=== PATIENT | female | born 1980 | race Caucasian/White ===

== ENCOUNTER → 2023-07-22 09:43 | Outpatient (BNVA) | payer BC, SELFPAY | PROVIDERS: PCP Nurse Practitioner Family; Visit Provider Nurse Practitioner Family | DX: M79.671 Pain in right foot (principal); S93.601A Unspecified sprain of right foot, initial encounter; X58.XXXA Exposure to other specified factors, initial encounter | CPT/HCPCS: 73630 ==

== ENCOUNTER → 2023-07-28 13:22 | Outpatient (BNVA) | payer BC, SELFPAY | PROVIDERS: PCP Nurse Practitioner Family; Visit Provider Podiatrist Foot & Ankle Surgery | DX: Z01.818 Encounter for other preprocedural examination; M20.11 Hallux valgus (acquired), right foot; S93.521A Sprain of metatarsophalangeal joint of right great toe, initial encounter; X58.XXXA Exposure to other specified factors, initial encounter | CPT/HCPCS: 73630 ==

== ENCOUNTER 2023-08-20 07:33 | Day surgery (SDC) | payer BC, SELFPAY ==
[2023-08-20] VITALS (11 sets, daily range): BP systolic 119–153; BP diastolic 79–99; PULSE 46–68; RESP 11–18; TEMP 36.1–36.7; O2SAT 95–100; BMI 25.8
--- NOTE | 2023-08-20 | XR_ITS ---
WS: [id number] C-ARM RADIOGRAPHS RIGHT FOOT; 2 IMAGES HISTORY: DIAMOND PICS COMPARISON: None available. Intraoperative imaging during surgical procedure and fixation at the first metatarsophalangeal joint. IMPRESSION: Intraoperative imaging during surgical procedure RIGHT foot.
--- NOTE | 2023-08-20 08:00 | W.PM.OPSUD ---
Surgery/Procedure H&P Update DATE OF PROCEDURE: August 20, 2023 DATE H&P PERFORMED: 07/28/23 H&P UPDATE INFORMATION: I have reviewed H&P completed within last 30 days, I have examined patient prior to procedure, No changes to prior documentation and H&P is in [facility] EMR on date indicated PREOP DIAGNOSIS: Right hallux valgus PLANNED PROCEDURE: Operation Date: 08/20/23 09:30 Proposed Procedures p Bunionectomy Patrick(Right) - Daniel Loaiza DPM s Bart Osteotomy(Right) - Daniel Loaiza DPM
[2023-08-20] MEDS: sodium chloride 0.9% 1,000 ML 30 ML IV (08:42)
[2023-08-20] MEDS: ondansetron 2 mg/ML SDV 2 mL 4 MG IVP (08:42)
[2023-08-20] MEDS: gabapentin 300 mg Capsule PO (08:43)
[2023-08-20] MEDS: acetaminophen 1,000 MG/100 ML PIGGYBACK 400 MG IV (08:44)
--- NOTE | 2023-08-20 08:55 | ANES.PREANE2 ---
Pre-Anesthetic Assessment Height/Weight: Height 1.7 m Weight 74.843 kg Temp Pulse Resp BP Pulse Ox O2 Del Method 97.8 F 52 L 14 119/79 99 Room Air 08/20/23 08:06 08/20/23 08:06 08/20/23 08:06 08/20/23 08:06 08/20/23 08:06 08/20/23 08:13 Preop Diagnosis: Right hallux valgus Operation Date: 08/20/23 09:30 Proposed Procedures p Bunionectomy Patrick(Right) - Daniel Loaiza DPM s Bart Osteotomy(Right) - Daniel Loaiza DPM Last intake: Intake Last Liquid Date 08/19/23 Last Liquid Time 22:30 Last Solid Date 08/19/23 Last Solid Time 20:30 Social No alcohol and No tobacco Exam alert, oriented x 3 and regular rate & rhythm Airway Submandibular: within normal limits Cervical ROM: within normal limits Mallampati: Class I Pulmonary None reported CV/HEM None reported Hepatic None reported GI None reported Anesthetic Plan ASA status: 2 Anesthesia: General Risk of > 500 ml blood loss (7ml/kg in children): No Medications/Allergies Home Medications Medication Instructions Recorded Confirmed Last Taken Type magnesium 500 mg tablet 500 mg PO DAILY 08/19/23 08/19/23 08/19/23 History pepsin 450 mg-amylase 60 mg-ox 1 tab PO DAILY 08/19/23 08/19/23 08/19/23 History bile 32 mg-pancr 32 mg-betain tablet,ER turmeric 400 mg capsule 400 mg PO DAILY 08/19/23 08/19/23 08/17/23 History hydrocodone 5 mg-acetaminophen 325 1 tab PO Q6H PRN pain #28 tabs 08/20/23 Unknown Rx mg tablet Allergies Allergy/AdvReac Type Severity Reaction Status Date / Time latex Allergy ALGY-Redness Verified 08/19/23 10:46 of Skin percocet Allergy itching Uncoded 07/28/23 13:03 Current Medications Generic Name Dose Route Start Last Admin Trade Name Freq PRN Reason Stop Dose Admin Sodium Chloride 1,000 mls @ 30 mls/hr 08/20/23 07:45 08/20/23 08:42 Sodium Chloride 0.9% IV 08/21/23 07:44 30 mls/hr .Q24H PARTH Administration Ondansetron HCl 4 mg 08/18/23 12:04 08/20/23 08:42 Ondansetron 2 Mg/Ml Sdv 2 Ml IVP 4 mg Q15M PRN Administration Nausea/Vomiting PACU PHASE II Data Anesthesia Cardiac Studies: No Data to Display
[2023-08-20] MEDS: ceFAZolin 2,000 MG in sodium chloride 0.9% (plus) 50 ML 100 MG IV (10:20)
[2023-08-20] MEDS: BUPivacaine 0.5% INJ 30 mL INJECTION (10:53)
--- NOTE | 2023-08-20 11:54 | P.BOP_ITS ---
Date of procedure: 08/20/23 Surgeon name: Trisha RossiPJenni Financial Services Technician(s) name(s): Alyce Procedure(s) performed: Right foot distal metatarsal bunionectomy Description of findings: Right foot hallux valgus Estimated blood loss: 5 cc Tourniquet time: 60 minutes Specimen(s) removed: None Post-operative diagnosis: Hallux valgus
--- NOTE | 2023-08-20 11:55 | PM.OP ---
Operative Report Date of procedure: August 20, 2023 Pre-op diagnosis: Right foot hallux valgus Post-op diagnosis: Same Post-op findings: Anatomically reduced hallux valgus deformity Procedure done: Right foot bunionectomy with distal metatarsal osteotomy CPT 55020 Implants: Two 4.0 cannulated fully threaded compression screws from [employer] Surgeon: Daniel Loaiza DPM Agency Service Coordinator: Alyce Estimated blood loss: 5 cc 60 minutes Complications: None Findings: See above Procedure: Patient is a 42-year-old female that has a history of right foot hallux valgus deformity. The patient has had the aforementioned chief complaint for some time. Conservative treatment measures have been attempted and the patient has opted for surgical intervention at this time. A lengthy discussion regarding the procedure, including risks and complications has been had with the patient and is noted in the recent clinic note. Written and verbal consent have been obtained. All patient questions have been answered to the patient?s satisfaction. No written or verbal guarantees have been given or implied. The patient has been NPO since midnight. The history has been reviewed and the history and physical is current. The signed consent was confirmed and placed in the patient chart. Patient imaging has been reviewed and is consistent with the diagnosis. Under mild sedation, the patient was brought into the operating room and placed on the table in the supine position. IV antibiotics were given by the anesthesia team as preoperative surgical prophylaxis. General sedation was then performed by the anesthesiateam. A local field block was performed using 0.5% Marcaine plain. A pneumatic tourniquet was then placed about the right thigh. The operative extremity was then prepped and draped in the usual fashion. The extremity was then elevated and exsanguinated before the tourniquet was inflated to 325 mmHg. After inflation, the following procedure was then performed. Attention was directed to the right foot where a notable hallux valgus deformity with prominent medial eminence was noted. Under sterile fluoroscopy the area of the first metatarsal neck was visualized. A stab incision was made at this level using a #15 blade. A Selma bur was then introduced into the incision site and under direct visualization via C-arm fluoroscopy a transverse osteotomy was made through the metatarsal neck. The first metatarsal head was then translated in the lateral direction in the transverse plane to reduce the 1?2 intermetatarsal angle. Frontal plane rotation of the first metatarsal head was achieved for anatomic alignment of the sesamoid bones. This was temporally fixated with guidewires. With appropriate anatomic position two 4.0 cannulated fully threaded headless compression screws were inserted over the wires from proximal medial to distal lateral direction across the osteotomy site. A 15 blade was used to make a stab incision at the level of the insertion of these wires prior to the passing of the screws over the wires. Good positioning of the screws was visualized on C-arm imaging. Stable construct of the hallux valgus corrective surgery was noted. At this point, incision sites were irrigated with copious amounts of sterile saline. The medial shelf of the first metatarsal shaft was smoothed down using a reciprocating power rasp. The site was then irrigated again with sterile saline. Good positioning of the screws was noted on final C-arm images. Incisions were closed using 4-0 nylon in horizontal mattress fashion. Incision sites were dressed with Xeroform, 4 x 4 gauze, Kerlix, Harlan. The tourniquet was let down and good hyperemic response was noted to all digits of the right foot. It was determined that Danilo osteotomy would not be necessary during the surgery given the reduction of the first metatarsal head osteotomy. The patient tolerated the procedure and anesthesia well and without complication. The patient was transported from the operating room to the recovery room with vital signs stable and vascular status intact to all digits of the right foot. The patient was given both written and verbal instructions to remain weightbearing as tolerated in cam boot to the operative extremity, to keep dressings/splint clean, dry and intact and to take pain medication as directed. The patient will follow-up in the outpatient setting at their scheduled appointment. The patient was discharged with my personal number and was instructed to call if any questions or issues should arise. They were discharged home once anesthesia criteria was met.
--- NOTE | 2023-08-20 12:39 | SUR.PHASEII ---
active warming applied to patient.
[2023-08-20] MEDS: scopolamine 1.5 Patch 1 PATCH TRANSDERMA (13:40)
--- NOTE | 2023-08-20 14:14 | ANE.PACU2 ---
Inpatient post-anesthesia follow up: Vital signs: Temperature 98.0 F Pulse Rate 54 Respiratory Rate 16 Blood Pressure 131/81 Pulse Oximetry 99 Oxygen Delivery Me thod Room Air Oxygen Flow Rate 8 Fraction of Inspir ed Oxygen Hydration adequate: Yes Nausea and vomiting: No Mental status: Baseline Additional Comments: no known anesthetic complications noted
== END 2023-08-20 13:40 | disposition home or self-care (01) ==
PROVIDERS: PCP Nurse Practitioner Family; Visit Provider Podiatrist Foot & Ankle Surgery
PROC: (CPT 28296; principal; 2023-08-20 09:20)
PROC: (CPT 28298; 2023-08-20 09:20)
DX: M20.11 Hallux valgus (acquired), right foot (principal); S93.521A Sprain of metatarsophalangeal joint of right great toe, initial encounter; X58.XXXA Exposure to other specified factors, initial encounter
CPT/HCPCS: 28296; 73620; 76000; C1713 ×2; J0131; J0690; J2405; J2704; J3010; J3490; J7030

== ENCOUNTER → 2023-08-27 14:34 | Outpatient (BNVA) | payer BC, SELFPAY | PROVIDERS: PCP Nurse Practitioner Family; Visit Provider Podiatrist Foot & Ankle Surgery | DX: M20.11 Hallux valgus (acquired), right foot (principal); S93.521A Sprain of metatarsophalangeal joint of right great toe, initial encounter; X58.XXXA Exposure to other specified factors, initial encounter | CPT/HCPCS: 73630 ==

== ENCOUNTER 2024-05-03 05:48 | Day surgery (SDC) | payer BC, SELFPAY ==
[2024-05-03] VITALS (9 sets, daily range): BP systolic 100–124; BP diastolic 59–84; PULSE 44–63; RESP 12–16; TEMP 36.3–36.9; O2SAT 98–100
--- NOTE | 2024-05-03 | XR_ITS ---
WS: [id number] Right foot, C-arm fluoroscopy views, 05/03/2024 Clinical Data: DIAMOND PICS Comparison: Right foot, 09/22/2023 Findings: C-arm fluoroscopy views of the right first metatarsal. XR/XR foot RT 2V [id number] Impression: C-arm fluoroscopy views of the right first metatarsal.
[2024-05-03] MEDS: sodium chloride 0.9% 1,000 ML 30 ML IV (06:28)
[2024-05-03] MEDS: ketorolac 30 mg/mL INJ IVP (06:35)
[2024-05-03] MEDS: gabapentin 300 mg Capsule PO (06:36)
--- NOTE | 2024-05-03 06:38 | W.PM.OPSFHP ---
Same Day Surgery H&P Indication for Procedure/HPI DATE OF PROCEDURE: May 03, 2024 CHIEF COMPLAINT/INDICATIONFOR SURGICAL PROCEDURE: Painful orthopedic hardware right foot PREOP DIAGNOSIS: Painful orthopedic hardware PLANNED PROCEDURE: Operation Date: 05/03/24 07:00 Proposed Procedures p Hardware removal right foot(Right) - Daniel Loaiza DPM Medications/Allergies* Home Medications Medication Instructions Recorded Confirmed Type magnesium 500 mg tablet 500 mg PO DAILY 08/19/23 05/03/24 History turmeric 400 mg capsule 400 mg PO DAILY 08/19/23 04/30/24 History Allergies/Adverse Reactions Allergy/AdvReac Type Severity Reaction Status Date / Time latex Allergy ALGY-Redness Verified 08/27/23 14:35 of Skin acetaminophen [From Percocet] AdvReac ADR-Itching Verified 03/11/24 12:06 oxycodone [From Percocet] AdvReac ADR-Itching Verified 03/11/24 12:06 Current Medications: Generic Name Dose Route Start Last Admin Trade Name Freq PRN Reason Stop Dose Admin Sodium Chloride 1,000 mls @ 30 mls/hr 05/03/24 06:00 05/03/24 06:28 Sodium Chloride 0.9% IV 05/04/24 05:59 30 mls/hr .Q24H PARTH Administration Pertinent Exam Findings alert, oriented x 3, clear to auscultation bilaterally, regular rate & rhythm, operative site marked and procedure specific exam findings Dermatological: Hypersensitivity rash to lateral aspect of right first metatarsophalangeal joint Musculoskeletal: Pain with palpation of orthopedic hardware at proximal medial first metatarsal Recommendations Surgery/Procedure today Other Plans: Plan for removal orthopedic hardware right foot Coding Level of Care Code Acute Code for Chg Fwd
--- NOTE | 2024-05-03 06:41 | ANES.PREANE2 ---
Pre-Anesthetic Assessment Height/Weight: Height 1.7 m Weight 74.843 kg Temp Pulse Resp BP Pulse Ox O2 Del Method 97.5 F L 63 16 124/84 98 Room Air 05/03/24 06:08 05/03/24 06:08 05/03/24 06:08 05/03/24 06:08 05/03/24 06:08 05/03/24 06:08 Preop Diagnosis: Painful orthopedic hardware Operation Date: 05/03/24 07:00 Proposed Procedures p Hardware removal right foot(Right) - Daniel Loaiza DPM Familial anesthetic complications: None Was Beta Primitivo taken within 24 hours: N/A Was Clonidine taken within 24 hours: N/A Last intake: Intake Last Liquid Date 05/02/24 Last Liquid Time 22:00 Last Solid Date 05/02/24 Last Solid Time 19:00 Social No alcohol and No tobacco Exam alert, oriented x 3, clear to auscultation bilaterally and regular rate & rhythm Airway Mallampati: Class I Dentition: full Anesthetic Plan ASA status: 1 Anesthesia: MAC Risk of > 500 ml blood loss (7ml/kg in children): No Medications/Allergies Home Medications Medication Instructions Recorded Confirmed Last Taken Type magnesium 500 mg tablet 500 mg PO DAILY 08/19/23 05/03/24 05/02/24 History turmeric 400 mg capsule 400 mg PO DAILY 08/19/23 04/30/24 04/26/24 History tramadol 50 mg tablet 50 mg PO Q6H PRN pain #12 tabs 05/03/24 Unknown Rx Allergies Allergy/AdvReac Type Severity Reaction Status Date / Time latex Allergy ALGY-Redness Verified 08/27/23 14:35 of Skin acetaminophen [From Percocet] AdvReac ADR-Itching Verified 03/11/24 12:06 oxycodone [From Percocet] AdvReac ADR-Itching Verified 03/11/24 12:06 Current Medications Generic Name Dose Route Start Last Admin Trade Name Freq PRN Reason Stop Dose Admin Sodium Chloride 1,000 mls @ 30 mls/hr 05/03/24 06:00 05/03/24 06:28 Sodium Chloride 0.9% IV 05/04/24 05:59 30 mls/hr .Q24H PARTH Administration Data Anesthesia Cardiac Studies: No Data to Display
[2024-05-03] MEDS: ceFAZolin 2,000 mg SDV 2000 MG IVP (07:02)
[2024-05-03] MEDS: BUPivacaine 0.5% INJ 30 mL INJECTION (07:10)
--- NOTE | 2024-05-03 08:10 | P.BOP_ITS ---
Date of procedure: 05/03/2024 Surgeon name: Trisha RossiPJenni Baby Registry Sales Consultant(s) name(s): Stefan Procedure(s) performed: Hardware removal right foot Description of findings: Retained hardware right foot Estimated blood loss: 5 cc Tourniquet time: 43 minutes Specimen(s) removed: Orthopedic screws right foot Post-operative diagnosis: Painful orthopedic hardware right foot
--- NOTE | 2024-05-03 08:11 | P.OP_ITS ---
Operative Report Date of procedure: May 03, 2024 Surgeon: Daniel Loaiza DPM Procedure: Date of procedure: 05/03/24 Pre-op diagnosis: Right foot painful orthopedic hardware Post-op diagnosis: same Post-op findings: intact orthopedic hardware Procedure done: hardware removal right foot CPT 47666 Implants: none Specimens removed: arthrex screw x 2 Surgeon: Dr. Daniel Loaiza DPM Parcel Contractor: Stefan Estimated blood loss: 5cc Tourniquet time: 43 minutes Complications: none Patient is a 43-year-old female that has a history of painful hardware right foot. The patient has had the aforementioned chief complaint for some time. Conservative treatment measures have been attempted and the patient has opted for surgical intervention at this time. A lengthy discussion regarding the procedure, including risks and complications has been had with the patient and is noted in the recent clinic note. Written and verbal consent have been obtained. All patient questions have been answered to the patient?s satisfaction. No written or verbal guarantees have been given or implied. The patient has been NPO since midnight. The history has been reviewed and the history and physical is current. The signed consent was confirmed and placed in the patient chart. Patient imaging has been reviewed and is consistent with the diagnosis. Under mild sedation, the patient was brought into the operating room and placed on the table in the supine position. IV antibiotics were given by the anesthesia team as preoperative surgical prophylaxis. IV sedation was then performed by the anesthesiateam. A pneumatic tourniquet was then placed about the right ankle. A local field block was performed using 0.5% marcaine plain. The operative extremity was then prepped and draped in the usual fashion. The extremity was then elevated and exsanguinated before the tourniquet was inflated to 250mmHg. After inflation, the following procedure was then performed. Attention was directed to the right foot where a 4.5cm incision was made medially over the orthopedic screws using a #15 blade. Blunt dissection was carried down through subcutaneous superficial fascia using a mosquito hemostat down to level of the head of the orthopedic screws. Using a dental pick and rongeur the heads of the screws were exposed before K wire was placed to the cannula of the screw. Good position of the wires was confirmed on C-arm imaging. Hand-held screwdriver was then used to remove screw x 2 from right foot. These were passed from the operative field. Final fluoroscopy showed removal of screws. The incision was irrigated with sterile saline before atte ntion was directed to closure. Deep tissue was closed with 3-0 Vicryl followed by subcuticular closure with 4-0 Vicryl and skin closure with 4-0 nylon in horizontal mattress fashion. The tourniquet was let down and good hyperemic response was noted to all digits of the right foot. The incision was dressed with Xeroform, 4 x 4 gauze, Kerlix, Harlan. The patient tolerated the procedure and anesthesia well and without complication. The patient was transported from the operating room to the recovery room with vital signs stable and vascular status intact to all digits of the right foot. The patient was given both written and verbal instructions to remain weightbearing as tolerated to the operative extremity, to keep dressings/splint clean, dry and intact and to take pain medication as directed. The patient will follow-up in the outpatient setting at their scheduled appointment. The patient was discharged with my personal number and was instructed to call if any questions or issues should arise. They were discharged home once anesthesia criteria was met.
--- NOTE | 2024-05-03 09:35 | ANE.PACU2 ---
Inpatient post-anesthesia follow up: Airway intact: Yes Vital signs: Temperature 97.3 F Pulse Rate 44 Respiratory Rate 16 Blood Pressure 118/79 Pulse Oximetry 100 Oxygen Delivery Me thod Room Air Oxygen Flow Rate Fraction of Inspir ed Oxygen Hydration adequate: Yes Nausea and vomiting: No Pain level: 1 Mental status: Baseline
== END 2024-05-03 09:35 | disposition home or self-care (01) ==
PROVIDERS: Visit Provider Podiatrist Foot & Ankle Surgery
PROC: (CPT 20680; principal; 2024-05-03 07:00)
DX: T84.84XA Pain due to internal orthopedic prosthetic devices, implants and grafts, initial encounter (principal); Y82.8 Other medical devices associated with adverse incidents
CPT/HCPCS: 20680; 73620; 76000; J0690; J1100; J1885; J2250; J2405; J2704; J3010; J3490; J7030